=== PATIENT | female | born 1945 | race Caucasian/White ===

== ENCOUNTER 2016-11-01 01:15 | Emergency (ER) | payer MEDICARE, OTHER ==
[~2016-11-01] VITALS: Ht 167.6 cm; Wt 77.1 kg
[~2016-11-01 01:15] MED LIST: AMLO10TA4 PO; CARB200T39; CHLO25TA13; CHOL4PAC2 PO; CLON1TAB4 PO; DESV100T PO; GUAI100S23; HYDR-3652 PO; LAMO25TA4 PO; LISI-603 PO; METO25TA6 PO; NAPR500T3; OMEP20CA10 PO; TIOT18CA3 IH; TRAZ-147 PO
--- NOTE | 2016-11-01 01:20 | NUR ---
71 YO FEMALE BB RA, PT IS ALERT X 3, STATES SHE CALLED 911 BECAUSE THEY WERE NOT GIVEING HER HER MEDICATION. NAD NTOED, SKIN WARM AND DRY, RR EVEN AND UNLABORED. WILL CONTINUE TO MONITOR
[2016-11-01 02:16] LABS: BASOPHILS % (AUTO) 0.2 % (0.0-2.0); EOSINOPHILS % (AUTO) 0.2 % (0.0-6.0); HEMATOCRIT 38 % (33-45); HEMOGLOBIN 12.5 g/dL (11.5-14.8); LYMPHOCYTES # (AUTO) 1.7 /CMM (0.8-4.8); LYMPHOCYTES % (AUTO) 42.1 % (20.0-44.0); MEAN CORPUSCULAR HEMOGLOBIN 31 PG (26.0-33.0); MEAN CORPUSCULAR HGB CONC 33 g/dl (31.0-36.0); MEAN CORPUSCULAR VOLUME 93 fL (82-100); MONOCYTES # (AUTO) 0.5 /CMM (0.1-1.30); MONOCYTES % (AUTO) 12.3 % (2.0-12.0); NEUTROPHILS # (AUTO) 1.8 /CMM (1.8-8.9); NEUTROPHILS % (AUTO) 45.2 % (43.0-81.0); PLATELET COUNT (AUTO) 184 /CMM (150-450); RDW COEFFICIENT OF VARIATION 14.3 (11.5-15.0); RED BLOOD CELL COUNT(AUTO) 4.04 MIL/uL (4.0-5.2); WHITE BLOOD COUNT (AUTO) 4.1 K/uL (4.3-11.0)
[2016-11-01 02:42] LABS: ACETAMINOPHEN 0 ug/ml (10-30); ALANINE AMINOTRANSFERASE 18 U/L (12-78); ALBUMIN 3.7 g/dL (3.4-5.0); ALCOHOL, BLOOD < 3 mg/dL (0-0); ALKALINE PHOSPHATASE 64 U/L (46-116); ASPARTATE AMINOTRANSFERASE 16 U/L (15-37); BILIRUBIN,DIRECT 0.1 mg/dL (0.0-0.2); BILIRUBIN,TOTAL 0.5 mg/dL (0.2-1.0); CALCIUM, SERUM 8.9 mg/dL (8.5-10.1); CARBON DIOXIDE 31 mmol/L (21-32); CHLORIDE 102 mmol/L (98-107); CREATININE 0.7 mg/dL (0.6-1.3); GLUCOSE 100 mg/dL (74-106); POTASSIUM 3.8 mmol/L (3.5-5.1); SALICYLATE 4.9 mg/dL (2.8-20.0); SODIUM SERUM 140 mmol/L (136-145); TOTAL PROTEIN, SERUM 7.6 g/dL (6.4-8.2); UREA NITROGEN, BLOOD 18 mg/dL (7-18)
--- NOTE | 2016-11-01 03:10 | NUR ---
ART CALLED FOR EVAL
[2016-11-01 04:42] VITALS: BP 138/76
--- NOTE | 2016-11-01 04:42 | NUR ---
PT SENT HOME VIA [facility]
== END 2016-11-01 04:46 | disposition home or self-care (01) ==
LOC: ER 01:18
DX: R51 Headache (principal); F32.9 Major depressive disorder, single episode, unspecified; F41.9 Anxiety disorder, unspecified; I10 Essential (primary) hypertension; J44.9 Chronic obstructive pulmonary disease, unspecified; Z86.73 Personal history of transient ischemic attack (TIA), and cerebral infarction without residual deficits; Z88.0 Allergy status to penicillin; F17.210 Nicotine dependence, cigarettes, uncomplicated
CPT/HCPCS: 36415; 80048-TC; 80076-TC; 85025-TC; A4606; G0480; G6039-TC; Z7610

== ENCOUNTER 2016-12-04 19:48 | Inpatient (IN) | payer MEDICARE, OTHER ==
[~2016-12-04] VITALS: Ht 167.6 cm; Wt 68.5 kg
[~2016-12-04 19:48] MED LIST changes: -CHLO25TA13; +CHLO25TA13 PO
[2016-12-04 20:16] LABS: BASOPHILS % (AUTO) 0.8 % (0.0-2.0); HEMATOCRIT 28 % (33-45); HEMOGLOBIN 9.5 g/dL (11.5-14.8); LYMPHOCYTES % (AUTO) 32.7 % (20.0-44.0); MEAN CORPUSCULAR HEMOGLOBIN 32 PG (26.0-33.0); MEAN CORPUSCULAR HGB CONC 34 g/dl (31.0-36.0); MEAN CORPUSCULAR VOLUME 94 fL (82-100); MONOCYTES # (AUTO) 0.4 /CMM (0.1-1.30); MONOCYTES % (AUTO) 12.1 % (2.0-12.0); NEUTROPHILS # (AUTO) 1.7 /CMM (1.8-8.9); NEUTROPHILS % (AUTO) 54.4 % (43.0-81.0); PLATELET COUNT (AUTO) 156 /CMM (150-450); RDW COEFFICIENT OF VARIATION 14.6 (11.5-15.0); RED BLOOD CELL COUNT(AUTO) 2.98 MIL/uL (4.0-5.2); WHITE BLOOD COUNT (AUTO) 3.1 K/uL (4.3-11.0)
[2016-12-04 20:27] LABS: CALCIUM, SERUM 8.5 mg/dL (8.5-10.1); CARBON DIOXIDE 28 mmol/L (21-32); CHLORIDE 105 mmol/L (98-107); CREATININE 0.8 mg/dL (0.6-1.3); GLUCOSE 139 mg/dL (74-106); POTASSIUM 3.7 mmol/L (3.5-5.1); SODIUM SERUM 139 mmol/L (136-145); UREA NITROGEN, BLOOD 20 mg/dL (7-18)
[2016-12-04 20:31] LABS: INR 1.05 (0.87-1.13); PROTHROMBIN TIME 10.9 SECS (9.5-12.7)
[2016-12-04] MEDS ORDERED: IV NS 0.9% 1,000 ML ONE (21:00)
[2016-12-04] MEDS ORDERED: CEFTRIAXONE 1GM BAG (ER ONLY) 50 ML IV ONE ×2 (21:00)
[2016-12-04] MEDS ORDERED: IV SET PRIMARY 1 EA INFUS.SET MC ONE (21:00)
[2016-12-04] MEDS ORDERED: VANCOMYCIN 1 GM in IV D5W 250 ML IV ONE (21:00)
[2016-12-04] MEDS ORDERED: IV NS 0.9% 1,000 ML BAG IV ONE (21:00)
[2016-12-04] MEDS ORDERED: IV SET PRIMARY PUMP SET 1 EA INFUS.SET MC ONE ×2 (21:01→22:47)
[2016-12-04] MEDS ORDERED: VANCOMYCIN 1 GM VIAL ONE (21:01)
[2016-12-04] MEDS ORDERED: PANT40TA4 PO (22:06)
[2016-12-04] MEDS ORDERED: DOXE10CA2 PO (22:06)
[2016-12-04] MEDS ORDERED: DIVA500T7 PO (22:06)
[2016-12-04] MEDS ORDERED: ALBU18HF2 INH (22:06)
[2016-12-04] MEDS ORDERED: DONE10TA44 PO (22:06)
[2016-12-04] MEDS ORDERED: CEPH500C2 PO (22:06)
[2016-12-04] MEDS ORDERED: SECONDARY IV SET 1 EA INFUS.SET MC ONE (22:47)
[2016-12-04] MEDS ORDERED: ACETAMINOPHEN 325 MG TABLET PO PRN (23:00)
[2016-12-04] MEDS ORDERED: LORAZEPAM INJ 2 MG/ML VIAL IV PRN (23:00)
[2016-12-04] MEDS ORDERED: MORPHINE SULFATE INJ 2 MG/ML DISP.SYRIN ONE (23:02)
[2016-12-04] MEDS ORDERED: ENOXAPARIN SODIUM 40 MG/0.4 ML DISP.SYRIN SQ ONE (23:02)
[2016-12-04] MEDS: IV NS 0.9% 1,000 ML IV PRN (23:15)
[2016-12-04] MEDS: MORPHINE SULFATE INJ 2 MG/ML DISP.SYRIN IV PRN (23:15)
[2016-12-04] MEDS: ENOXAPARIN SODIUM 40 MG/0.4 ML DISP.SYRIN SQ SCH (23:17)
[2016-12-05] MEDS ORDERED: MORPHINE SULFATE INJ 2 MG/ML DISP.SYRIN ONE (04:28)
[2016-12-05] MEDS: MORPHINE SULFATE INJ 2 MG/ML DISP.SYRIN IV PRN (04:38)
[2016-12-05 06:35] LABS: BASOPHILS % (AUTO) 0.8 % (0.0-2.0); EOSINOPHILS % (AUTO) 0.1 % (0.0-6.0); HEMATOCRIT 29 % (33-45); HEMOGLOBIN 9.9 g/dL (11.5-14.8); LYMPHOCYTES # (AUTO) 0.9 /CMM (0.8-4.8); LYMPHOCYTES % (AUTO) 44.1 % (20.0-44.0); MEAN CORPUSCULAR HEMOGLOBIN 32 PG (26.0-33.0); MEAN CORPUSCULAR HGB CONC 34 g/dl (31.0-36.0); MEAN CORPUSCULAR VOLUME 94 fL (82-100); MONOCYTES # (AUTO) 0.3 /CMM (0.1-1.30); MONOCYTES % (AUTO) 15.6 % (2.0-12.0); NEUTROPHILS # (AUTO) 0.8 /CMM (1.8-8.9); NEUTROPHILS % (AUTO) 39.4 % (43.0-81.0); PLATELET COUNT (AUTO) 123 /CMM (150-450); RDW COEFFICIENT OF VARIATION 15.3 (11.5-15.0); RED BLOOD CELL COUNT(AUTO) 3.08 MIL/uL (4.0-5.2)
[2016-12-05 07:07] LABS: CALCIUM, SERUM 7.8 mg/dL (8.5-10.1); CARBON DIOXIDE 27 mmol/L (21-32); CHLORIDE 106 mmol/L (98-107); CREATININE 0.4 mg/dL (0.6-1.3); GLUCOSE 91 mg/dL (74-106); POTASSIUM 3.5 mmol/L (3.5-5.1); SODIUM SERUM 141 mmol/L (136-145); UREA NITROGEN, BLOOD 12 mg/dL (7-18)
[2016-12-05] MEDS ORDERED: IBUP-1481 PO (07:30)
[2016-12-05] MEDS ORDERED: DOXE25CA3 PO (07:30)
[2016-12-05] MEDS ORDERED: PANTOPRAZOLE 40 MG TABLET.DR PO SCH (07:30)
[2016-12-05] MEDS ORDERED: DONE5TAB34 PO (07:30)
[2016-12-05 08:00] VITALS: BP 124/67
[2016-12-05 08:40] LABS: LYMPHOCYTES % (MANUAL) 57 % (16-48); MONOCYTES % (MANUAL) 12 % (0-11.0); NEUTROPHILS % (MANUAL) 31 (42-76)
[2016-12-05] MEDS ORDERED: IV SET PRIMARY PUMP SET 1 EA INFUS.SET MC ONE (09:19)
[2016-12-05] MEDS ORDERED: SECONDARY IV SET 1 EA INFUS.SET MC ONE ×2 (09:20→22:06)
[2016-12-05] MEDS: VANCOMYCIN HCL 0.75 GM in IV D5W 250 ML IV SCH ×2 (09:28→21:50)
[2016-12-05] MEDS ORDERED: FEE PK DOSING 1 MIN EA MC ONE (11:29)
[2016-12-05] MEDS: DIVALPROEX SODIUM 500 MG TABLET.DR PO SCH ×2 (12:31→16:42)
[2016-12-05] MEDS: chlorproMAZINE HCL 25 MG TABLET PO SCH ×2 (12:32→16:43)
[2016-12-05] MEDS: HYDROCODONE/APAP 5/325MG 1 EACH TABLET PO SCH ×2 (12:32→21:55)
[2016-12-05] MEDS: AMLODIPINE BESYLATE 10 MG TABLET PO SCH (12:32)
[2016-12-05] MEDS: LISINOPRIL (20MG) 20 MG TABLET PO SCH (12:33)
[2016-12-05] MEDS: IBUPROFEN 400 MG TABLET PO SCH ×2 (13:00→16:43)
[2016-12-05] MEDS ORDERED: ALBUTEROL FS 2.5 MG/3 ML VIAL.NEB NEB PRN (13:30)
[2016-12-05 16:00] VITALS: BP 127/76
[2016-12-05 20:00] VITALS: BP 114/61
[2016-12-05] MEDS: CEFTRIAXONE 1 G in IV D5W 50 ML IV SCH (21:50)
[2016-12-05] MEDS: DONEPEZIL 5 MG TABLET PO SCH (21:54)
[2016-12-05] MEDS: DOXEPIN HCL (25 MG) 25 MG CAPSULE PO SCH (22:15)
[2016-12-05] MEDS: ENOXAPARIN SODIUM 40 MG/0.4 ML DISP.SYRIN SQ SCH (23:00)
[2016-12-06] MEDS: IV NS 0.9% 1,000 ML IV PRN ×2 (05:30→16:43)
[2016-12-06 06:41] LABS: CALCIUM, SERUM 8.5 mg/dL (8.5-10.1); CARBON DIOXIDE 30 mmol/L (21-32); CHLORIDE 104 mmol/L (98-107); CREATININE 0.5 mg/dL (0.6-1.3); GLUCOSE 94 mg/dL (74-106); MAGNESIUM 1.7 mg/dL (1.8-2.4); POTASSIUM 3.4 mmol/L (3.5-5.1); SODIUM SERUM 140 mmol/L (136-145); UREA NITROGEN, BLOOD 10 mg/dL (7-18)
[2016-12-06 06:57] LABS: WHITE BLOOD COUNT (AUTO) 2.1 K/uL (4.3-11.0)
[2016-12-06 06:58] LABS: BASOPHILS % (AUTO) 0.6 % (0.0-2.0); EOSINOPHILS % (AUTO) 0.4 % (0.0-6.0); HEMATOCRIT 31 % (33-45); HEMOGLOBIN 10.6 g/dL (11.5-14.8); LYMPHOCYTES % (AUTO) 47.7 % (20.0-44.0); MEAN CORPUSCULAR HEMOGLOBIN 32 PG (26.0-33.0); MEAN CORPUSCULAR HGB CONC 35 g/dl (31.0-36.0); MEAN CORPUSCULAR VOLUME 94 fL (82-100); MONOCYTES % (AUTO) 15.5 % (2.0-12.0); NEUTROPHILS # (AUTO) 0.7 /CMM (1.8-8.9); NEUTROPHILS % (AUTO) 35.8 % (43.0-81.0); PLATELET COUNT (AUTO) 130 /CMM (150-450); RDW COEFFICIENT OF VARIATION 14.9 (11.5-15.0); RED BLOOD CELL COUNT(AUTO) 3.28 MIL/uL (4.0-5.2)
[2016-12-06 06:59] LABS: MONOCYTES # (AUTO) 0.3 /CMM (0.1-1.30)
[2016-12-06 08:00] VITALS: BP 138/75
[2016-12-06] MEDS: HYDROCODONE/APAP 5/325MG 1 EACH TABLET PO SCH ×2 (08:15→16:44)
[2016-12-06] MEDS: IBUPROFEN 400 MG TABLET PO SCH ×3 (08:15→16:44)
[2016-12-06] MEDS: DIVALPROEX SODIUM 500 MG TABLET.DR PO SCH ×2 (08:17→16:44)
[2016-12-06] MEDS: PANTOPRAZOLE 40 MG TABLET.DR PO SCH (08:17)
[2016-12-06] MEDS: VANCOMYCIN HCL 0.75 GM in IV D5W 250 ML IV SCH ×2 (08:17→21:14)
[2016-12-06] MEDS: LISINOPRIL (20MG) 20 MG TABLET PO SCH (08:17)
[2016-12-06] MEDS: chlorproMAZINE HCL 25 MG TABLET PO SCH ×2 (08:17→16:45)
[2016-12-06] MEDS: AMLODIPINE BESYLATE 10 MG TABLET PO SCH (08:21)
[2016-12-06] MEDS: MORPHINE SULFATE INJ 2 MG/ML DISP.SYRIN IV PRN (09:15)
[2016-12-06 09:21] LABS: LYMPHOCYTES % (MANUAL) 45 % (16-48); MONOCYTES % (MANUAL) 20 % (0-11.0); NEUTROPHILS % (MANUAL) 35 (42-76)
[2016-12-06] MEDS ORDERED: MAGNESIUM OXIDE 400 MG TABLET PO SCH (11:00)
[2016-12-06] MEDS ORDERED: POTASSIUM CHLORIDE 20 MEQ TAB.PRT.SR PO SCH (11:00)
[2016-12-06] MEDS ORDERED: ONDANSETRON HCL/PF 4 MG/2 ML VIAL IV PRN (14:30)
[2016-12-06 16:00] VITALS: BP 100/54
[2016-12-06] MEDS: LACTOBACILLUS RHAMNOSUS GG 1 EACH CAP.SPRINK PO SCH (16:44)
[2016-12-06 20:00] VITALS: BP 122/70
[2016-12-06 20:01] VITALS: BP 122/70
[2016-12-06] MEDS: CEFTRIAXONE 1 G in IV D5W 50 ML IV SCH (21:14)
[2016-12-06] MEDS: DOXEPIN HCL (25 MG) 25 MG CAPSULE PO SCH (21:59)
[2016-12-06] MEDS: DONEPEZIL 5 MG TABLET PO SCH (22:00)
[2016-12-07] MEDS: ENOXAPARIN SODIUM 40 MG/0.4 ML DISP.SYRIN SQ SCH ×2 (00:57→22:01)
[2016-12-07 07:14] LABS: BASOPHILS % (AUTO) 0.6 % (0.0-2.0); EOSINOPHILS % (AUTO) 0.1 % (0.0-6.0); HEMATOCRIT 30 % (33-45); HEMOGLOBIN 10.4 g/dL (11.5-14.8); MEAN CORPUSCULAR HEMOGLOBIN 33 PG (26.0-33.0); MEAN CORPUSCULAR HGB CONC 35 g/dl (31.0-36.0); MEAN CORPUSCULAR VOLUME 93 fL (82-100); MONOCYTES # (AUTO) 0.4 /CMM (0.1-1.30); MONOCYTES % (AUTO) 16.9 % (2.0-12.0); NEUTROPHILS # (AUTO) 0.8 /CMM (1.8-8.9); NEUTROPHILS % (AUTO) 36.4 % (43.0-81.0); PLATELET COUNT (AUTO) 132 /CMM (150-450); RDW COEFFICIENT OF VARIATION 14.9 (11.5-15.0); RED BLOOD CELL COUNT(AUTO) 3.18 MIL/uL (4.0-5.2); WHITE BLOOD COUNT (AUTO) 2.2 K/uL (4.3-11.0)
[2016-12-07 07:39] LABS: CALCIUM, SERUM 8.2 mg/dL (8.5-10.1); CARBON DIOXIDE 30 mmol/L (21-32); CHLORIDE 105 mmol/L (98-107); CREATININE 0.5 mg/dL (0.6-1.3); GLUCOSE 86 mg/dL (74-106); MAGNESIUM 1.8 mg/dL (1.8-2.4); POTASSIUM 3.8 mmol/L (3.5-5.1); SODIUM SERUM 140 mmol/L (136-145); UREA NITROGEN, BLOOD 14 mg/dL (7-18)
[2016-12-07 08:00] VITALS: BP 135/73
[2016-12-07] MEDS: VANCOMYCIN HCL 0.75 GM in IV D5W 250 ML IV SCH (08:21)
[2016-12-07] MEDS: IBUPROFEN 400 MG TABLET PO SCH ×3 (08:21→16:45)
[2016-12-07] MEDS: LACTOBACILLUS RHAMNOSUS GG 1 EACH CAP.SPRINK PO SCH ×2 (08:21→16:45)
[2016-12-07] MEDS: DIVALPROEX SODIUM 500 MG TABLET.DR PO SCH ×2 (08:21→16:44)
[2016-12-07] MEDS: chlorproMAZINE HCL 25 MG TABLET PO SCH ×2 (08:21→16:45)
[2016-12-07] MEDS: HYDROCODONE/APAP 5/325MG 1 EACH TABLET PO SCH ×2 (08:22→16:45)
[2016-12-07] MEDS: PANTOPRAZOLE 40 MG TABLET.DR PO SCH (08:22)
[2016-12-07] MEDS: LISINOPRIL (20MG) 20 MG TABLET PO SCH (08:23)
[2016-12-07] MEDS: AMLODIPINE BESYLATE 10 MG TABLET PO SCH (08:28)
[2016-12-07] MEDS ORDERED: POTASSIUM CHLORIDE 20 MEQ TAB.PRT.SR PO ONE (08:30)
[2016-12-07 10:17] LABS: LYMPHOCYTES % (MANUAL) 26 % (16-48); MONOCYTES % (MANUAL) 21 % (0-11.0); NEUTROPHILS % (MANUAL) 53 (42-76)
[2016-12-07 16:00] VITALS: BP 116/66
[2016-12-07] MEDS: VANCOMYCIN 1 GM in IV D5W 250 ML IV SCH (17:00)
[2016-12-07 20:00] VITALS: BP 111/63
[2016-12-07 20:17] VITALS: BP 111/63
[2016-12-07] MEDS: CEFTRIAXONE 1 G in IV D5W 50 ML IV SCH (20:53)
[2016-12-07] MEDS: DOXEPIN HCL (25 MG) 25 MG CAPSULE PO SCH (21:48)
[2016-12-07] MEDS: DONEPEZIL 5 MG TABLET PO SCH (21:48)
[2016-12-08] MEDS: MORPHINE SULFATE INJ 2 MG/ML DISP.SYRIN IV PRN (02:51)
[2016-12-08 02:58] VITALS: BP 121/64
[2016-12-08] MEDS: VANCOMYCIN 1 GM in IV D5W 250 ML IV SCH ×2 (05:02→17:37)
[2016-12-08 07:46] LABS: CALCIUM, SERUM 8.6 mg/dL (8.5-10.1); CARBON DIOXIDE 29 mmol/L (21-32); CHLORIDE 105 mmol/L (98-107); CREATININE 0.6 mg/dL (0.6-1.3); GLUCOSE 98 mg/dL (74-106); POTASSIUM 3.9 mmol/L (3.5-5.1); SODIUM SERUM 142 mmol/L (136-145); UREA NITROGEN, BLOOD 19 mg/dL (7-18)
[2016-12-08 08:00] VITALS: BP 136/73
[2016-12-08] MEDS: LACTOBACILLUS RHAMNOSUS GG 1 EACH CAP.SPRINK PO SCH ×2 (09:10→17:36)
[2016-12-08] MEDS: PANTOPRAZOLE 40 MG TABLET.DR PO SCH (09:10)
[2016-12-08] MEDS: HYDROCODONE/APAP 5/325MG 1 EACH TABLET PO SCH ×2 (09:10→17:36)
[2016-12-08] MEDS: chlorproMAZINE HCL 25 MG TABLET PO SCH ×2 (09:10→17:36)
[2016-12-08] MEDS: LISINOPRIL (20MG) 20 MG TABLET PO SCH (09:10)
[2016-12-08] MEDS: DIVALPROEX SODIUM 500 MG TABLET.DR PO SCH ×2 (09:11→17:36)
[2016-12-08] MEDS: AMLODIPINE BESYLATE 10 MG TABLET PO SCH (09:11)
[2016-12-08] MEDS: IBUPROFEN 400 MG TABLET PO SCH ×3 (09:11→17:36)
[2016-12-08 16:00] VITALS: BP 126/70
[2016-12-08 20:00] VITALS: BP 128/72
[2016-12-08] MEDS: CEFTRIAXONE 1 G in IV D5W 50 ML IV SCH (20:24)
[2016-12-08] MEDS: DOXEPIN HCL (25 MG) 25 MG CAPSULE PO SCH (21:57)
[2016-12-08] MEDS: DONEPEZIL 5 MG TABLET PO SCH (21:57)
[2016-12-08] MEDS: ENOXAPARIN SODIUM 40 MG/0.4 ML DISP.SYRIN SQ SCH (22:13)
[2016-12-09] MEDS: PANTOPRAZOLE 40 MG TABLET.DR PO SCH (06:36)
[2016-12-09 08:00] VITALS: BP 139/69
[2016-12-09] MEDS: VANCOMYCIN 1 GM in IV D5W 250 ML IV SCH (09:13)
[2016-12-09] MEDS: chlorproMAZINE HCL 25 MG TABLET PO SCH ×2 (09:14→16:20)
[2016-12-09] MEDS: LACTOBACILLUS RHAMNOSUS GG 1 EACH CAP.SPRINK PO SCH ×2 (09:14→16:19)
[2016-12-09] MEDS: IBUPROFEN 400 MG TABLET PO SCH ×3 (09:14→16:19)
[2016-12-09] MEDS: HYDROCODONE/APAP 5/325MG 1 EACH TABLET PO SCH ×2 (09:15→16:20)
[2016-12-09] MEDS: DIVALPROEX SODIUM 500 MG TABLET.DR PO SCH ×2 (09:15→16:19)
[2016-12-09] MEDS: LISINOPRIL (20MG) 20 MG TABLET PO SCH (09:16)
[2016-12-09] MEDS: AMLODIPINE BESYLATE 10 MG TABLET PO SCH (09:16)
[2016-12-09 15:37] LABS: CALCIUM, SERUM 8.7 mg/dL (8.5-10.1); CARBON DIOXIDE 25 mmol/L (21-32); CHLORIDE 104 mmol/L (98-107); CREATININE 0.7 mg/dL (0.6-1.3); GLUCOSE 93 mg/dL (74-106); POTASSIUM 3.9 mmol/L (3.5-5.1); SODIUM SERUM 139 mmol/L (136-145); UREA NITROGEN, BLOOD 20 mg/dL (7-18)
[2016-12-09 16:00] VITALS: BP 115/67
== END 2016-12-09 16:45 | DRG 603 ==
LOC: ER 19:54 → MED 21:56
PROVIDERS: ADMIT Legal Medicine; ATTEND Legal Medicine
PROC: 05H533Z Insertion of Infusion Device into Right Subclavian Vein, Percutaneous Approach (ICD-10-PCS; principal; 2016-12-04)
DX: L03.114 Cellulitis of left upper limb (principal); J44.9 Chronic obstructive pulmonary disease, unspecified; G89.4 Chronic pain syndrome; F31.9 Bipolar disorder, unspecified; E78.5 Hyperlipidemia, unspecified; I10 Essential (primary) hypertension; F03.90 Unspecified dementia, unspecified severity, without behavioral disturbance, psychotic disturbance, mood disturbance, and anxiety; M19.90 Unspecified osteoarthritis, unspecified site; Z88.0 Allergy status to penicillin; Z86.73 Personal history of transient ischemic attack (TIA), and cerebral infarction without residual deficits
CPT/HCPCS: 36415; 36569; 70450-TC; 72125-TC; 73080-TC; 80048-TC; 80202-TC; 83605-TC; 83735-TC; 85025-TC; 85652-TC; 85730-TC; 87040-TC; 87070-TC; 87081-TC; 94799-TC; A4606; A6253; A6402; A6403; J0696; J1650; J2060; J2270; J3370; J7030; J7060; Q0161; Z7610

== ENCOUNTER 2017-03-13 11:06 | Inpatient (IN) | payer MEDICARE, OTHER ==
[~2017-03-13] VITALS: Ht 167.6 cm; Wt 61.2 kg
[~2017-03-13 11:06] MED LIST changes: +ALBU18HF2 INH; -CARB200T39; +CEPH500C2 PO; -CHOL4PAC2 PO; -CLON1TAB4 PO; -DESV100T PO; +DIVA500T7 PO; +DONE5TAB34 PO; +DOXE25CA3 PO; -GUAI100S23; +IBUP-1481 PO; -LAMO25TA4 PO; -METO25TA6 PO; -NAPR500T3; -OMEP20CA10 PO; +PANT40TA4 PO; -TIOT18CA3 IH; -TRAZ-147 PO
--- NOTE | 2017-03-13 11:15 | NUR ---
PT LIZZIE FROM [facility], C/O DIFFUSE ABDOMINAL PAIN W/ N/V. PT STATES FEELING SICK FOR AT LEAST 2 WEEKS NOW. PT IS AAOX3. GOWNED AND AND PLACED ON MONITOR. HYPERTENSIVE OTHERWISE STABLE VITALS. AWAITING MD ADAMS.
--- NOTE | 2017-03-13 11:16 | NUR ---
COFFIN MAKER AT BEDSIDE FOR BLOOD DRAW.
[2017-03-13 11:27] LABS: BASOPHILS % (AUTO) 0.3 % (0.0-2.0); HEMATOCRIT 41 % (33-45); HEMOGLOBIN 13.8 g/dL (11.5-14.8); LYMPHOCYTES # (AUTO) 0.7 /CMM (0.8-4.8); LYMPHOCYTES % (AUTO) 16.7 % (20.0-44.0); MEAN CORPUSCULAR HEMOGLOBIN 32 PG (26.0-33.0); MEAN CORPUSCULAR HGB CONC 34 g/dl (31.0-36.0); MEAN CORPUSCULAR VOLUME 95 fL (82-100); MONOCYTES # (AUTO) 0.1 /CMM (0.1-1.30); MONOCYTES % (AUTO) 2.9 % (2.0-12.0); NEUTROPHILS # (AUTO) 3.4 /CMM (1.8-8.9); NEUTROPHILS % (AUTO) 80.1 % (43.0-81.0); PLATELET COUNT (AUTO) 151 /CMM (150-450); RED BLOOD CELL COUNT(AUTO) 4.26 MIL/uL (4.0-5.2); WHITE BLOOD COUNT (AUTO) 4.3 K/uL (4.3-11.0)
[2017-03-13] MEDS ORDERED: IV NS 0.9% 1,000 ML BAG IV ONE (11:30)
[2017-03-13] MEDS ORDERED: ONDANSETRON HCL/PF - ER 4 MG/2 ML VIAL IV ONE (11:30)
[2017-03-13] MEDS ORDERED: SULF1TAB48 PO (11:34)
[2017-03-13] MEDS ORDERED: ACID1TAB12 PO (11:34)
[2017-03-13] MEDS ORDERED: MUPI22OI7 MC (11:34)
[2017-03-13] MEDS ORDERED: DULO30CA2 PO (11:34)
[2017-03-13] MEDS ORDERED: ONDANSETRON HCL/PF 4 MG/2 ML VIAL ONE (11:34)
[2017-03-13 11:36] LABS: CALCIUM, SERUM 9.4 mg/dL (8.5-10.1); CARBON DIOXIDE 27 mmol/L (21-32); CHLORIDE 101 mmol/L (98-107); CREATININE 0.6 mg/dL (0.6-1.3); GLUCOSE 176 mg/dL (74-106); POTASSIUM 3.4 mmol/L (3.5-5.1); SODIUM SERUM 138 mmol/L (136-145); UREA NITROGEN, BLOOD 10 mg/dL (7-18)
--- NOTE | 2017-03-13 11:37 | NUR ---
DR ORNELAS AT BEDSIDE FOR EVAL.
[2017-03-13 11:42] LABS: ALANINE AMINOTRANSFERASE 14 U/L (12-78); ALBUMIN 4.1 g/dL (3.4-5.0); ALKALINE PHOSPHATASE 49 U/L (46-116); ASPARTATE AMINOTRANSFERASE 14 U/L (15-37); BILIRUBIN,DIRECT 0.1 mg/dL (0.0-0.2); BILIRUBIN,TOTAL 0.5 mg/dL (0.2-1.0); LIPASE 93 U/L (73-393); TOTAL PROTEIN, SERUM 8.1 g/dL (6.4-8.2)
[2017-03-13] MEDS ORDERED: MORPHINE SULFATE INJ 4 MG/ML DISP.SYRIN ONE (11:47)
[2017-03-13] MEDS ORDERED: MORPHINE SULFATE INJ 2 MG/ML DISP.SYRIN IV ONE (12:00)
[2017-03-13] MEDS ORDERED: ACETAMINOPHEN 325 MG TABLET PO PRN (12:30)
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
[2017-03-13] MEDS ORDERED: IOHEXOL-300 100 ML VIAL IV ONE (14:43)
[2017-03-13] MEDS ORDERED: IV NS 0.9% 250 ML IV ONE (14:43)
[2017-03-13 15:15] VITALS: BP 177/91
--- NOTE | 2017-03-13 15:15 | NUR ---
OFFICE SERVICES ASSISTANT NOTES ADMITTED THIS PATIENT, DX INTRACTABLE VOMITING, ABDOMINAL PAIN BY DR. CLAUDIA POON, AOX 3, ON 2L O2, NOT IN ANY DISTRESS, C/O ABDOMINAL PAIN, 3/10, TOLERABLE, RECEIVED PAIN MEDS AT ER, TELEMETRY READS SR 65, DENIES AMBROCIO DISCOMFORT, RFA G20 WITH NS AT 75 ML/HR, SITE CLEAR, CLEAR LIQUID DIET, BED REST FOR NOW. SKIN INTACT, URINT ORIENTATION DONE AND USE OF CALL LIGHT, BED LOW LOCKED, CALL LIGHT WITHIN REACH, WILL CONT TO MONITOR.
--- NOTE | 2017-03-13 15:24 | NUR ---
REPORT GIVEN TO ROSHAN. PT TRANSFERED TO FLOOR. UPGRADED TO TELE. STABLE CONDITION.
--- NOTE | 2017-03-13 15:30 | NUR ---
WHOLESALE PARTS SALESPERSON NOTES DR. TAYLOR NOTIFIED BP 177/91. ORDERED CLONOPIN 0.1MG Q 7 DAYS, HOLD FOR SBP <100.
[2017-03-13] MEDS ORDERED: CLONIDINE HCL 0.1MG/24H PTWK 1 EA PATCH TD SCH (16:00)
[2017-03-13] MEDS ORDERED: POTASSIUM CHLORIDE 20 MEQ TAB.PRT.SR PO ONE (16:00)
--- NOTE | 2017-03-13 16:15 | NUR ---
BIOINFORMATICIST NOTES BP RECHECKED 170/83 HR 63.
[2017-03-13] MEDS: IV NS 0.9% 1,000 ML IV PRN (16:19)
[2017-03-13] MEDS: DIVALPROEX SODIUM 500 MG TABLET.DR PO SCH (16:19)
[2017-03-13 18:00] VITALS: BP 170/83
--- NOTE | 2017-03-13 18:28 | NUR ---
ADVANCED MANAGER NOTES PATIENT RESTING COMFORTABLY. ON O2 2L NC, NOT IN ANY DISTRESS, NO SIGNS OF PAIN. IVF RUNNING, SITE CLEAR, TELEMETRY READS SR HR 63. ALL NEEDS MET. NO OTHER SIGNIFICANT CHANGE IN CONDITION. WILL ENDORSE TO NEXT SHIFT FOR JES.
[2017-03-13 20:00] VITALS: BP 171/72
--- NOTE | 2017-03-13 20:10 | NUR ---
RN INITIAL NOTES: RECEIVED REPORT FROM KAVON ZAMARRIPA, PT IN BED, AWAKE, A/O X2 ON 2L VIA NC RESPIRATION EVEN AND UNLABORED, PT IS UPSET BECAUSE SHE STATED SHE'S BEEN ASKING FOR SODA SINCE LUNCH TIME AND THE NURSE DIDNT BRING ANYTHING, INFORMED PT WE DONT HAVE KITCHEN AT NIGHT AND I COULD ONLY OFFER JUICE AND WATER, AND ASK IF PT STILL HAVE EPISODE OF N/V, SHE STATED YES, THEN I EDUCATE HER THAT D=SODA WOULD NOT BE A GOOD OPTION TO DRINK SINCE IT WILL MAKE HER STOMACH MORE ACIDIC AND UPSET. PT AGREE. IV ACCESS IS PATENT AND FLUSHING WELL, INFUSING WITH NS AT 75ML/HR, PT ON SINUS RHYTHM HR 85, SAFETY PRECAUTIONS FOR FALL INITIATED CALL LIGHT IN REACH, WILL CONTINUE TO MONITOR
--- NOTE | 2017-03-13 20:30 | NUR ---
RN NOTES: NOTED PT'S BP ELEVATED, PT GIVEN CATAPRES PATCH AT 1640, FLUIDS WERE DECREASE TO 40CC/HR IT SEEMS LIKE THE RATE COULD POSSIBLY CAUSING THE BP TO GO UP, WILL RECHECK VS AFTER 30MINS TO 1HR, THEN WILL PLACE THE RATE BACK TO 75ML/HR ONCE VS WAS CHECK.
[2017-03-13 21:00] VITALS: BP 175/77
[2017-03-13] MEDS: FAMOTIDINE/PF INJ 20 MG/2 ML VIAL IV SCH (21:55)
[2017-03-13] MEDS: DONEPEZIL 5 MG TABLET PO SCH (21:55)
--- NOTE | 2017-03-13 22:50 | NUR ---
RN NOTES: REPORT GIVEN TO AMITA RN, ALSO INFORMED ABOUT PT'S BP SO FAR IT'S STILL 170'S, PT DENIES ANY HEAD ACHE DIZZINESS OR PAIN, PT CURRENTLY SLEEPING. ENDORSED FOR CONTINUITY OF CARE
[2017-03-14] VITALS (8 sets, daily range): BP systolic 106–187; BP diastolic 50–97
[2017-03-14] MEDS: ONDANSETRON HCL/PF 4 MG/2 ML VIAL IVP PRN ×4 (01:09→23:55)
--- NOTE | 2017-03-14 01:09 | NUR ---
DRY PRESS OPERATOR NOTES C/O NAUSEA/VOMITING,ZOFRAN 4MG IV ADMINISTERED
[2017-03-14] MEDS: HYDROCODONE/APAP 5/325MG 1 EACH TABLET PO PRN (01:15)
--- NOTE | 2017-03-14 01:15 | NUR ---
KEYSMITH NOTES PAIN MANAGEMENT C/O ABDOMINAL PAIN 7/10 ON PAIN SCALE,MEDICATED WITH NORCO 5/325 1TAB PO WITH JELLO PER PATIENT REQUEST
--- NOTE | 2017-03-14 01:30 | NUR ---
MANUFACTURER REPRESENTATIVE NOTES DR AGUAYO MADE AWARE OF PATIENT HIGH SBP,WITH NEW ORDER NOTED AND CARRIED OUT.
[2017-03-14] MEDS ORDERED: hydrALAZINE HCL IV 20 MG VIAL ONE (04:17)
[2017-03-14] MEDS: hydrALAZINE HCL IV 20 MG VIAL IV PRN ×2 (04:22→23:56)
--- NOTE | 2017-03-14 06:54 | NUR ---
SET UP OPERATOR TOOL NOTES LATEST BP 164/87,HR-93.IVF INFUSING AT THIS TIME. NAUSEA SUBSIDED.NO PAIN AT THIS TIME.CALL LIGHT IN REACH,NEEDS ATTENDED.WILL ENDORSE TO DAY NURSE FOR JES.
[2017-03-14 07:09] LABS: BASOPHILS % (AUTO) 0.1 % (0.0-2.0); EOSINOPHILS % (AUTO) 0.1 % (0.0-6.0); HEMATOCRIT 43 % (33-45); HEMOGLOBIN 14.9 g/dL (11.5-14.8); LYMPHOCYTES % (AUTO) 12.8 % (20.0-44.0); MEAN CORPUSCULAR HEMOGLOBIN 32 PG (26.0-33.0); MEAN CORPUSCULAR HGB CONC 34 g/dl (31.0-36.0); MEAN CORPUSCULAR VOLUME 94 fL (82-100); MONOCYTES # (AUTO) 0.2 /CMM (0.1-1.30); MONOCYTES % (AUTO) 2.7 % (2.0-12.0); NEUTROPHILS # (AUTO) 6.6 /CMM (1.8-8.9); NEUTROPHILS % (AUTO) 84.3 % (43.0-81.0); PLATELET COUNT (AUTO) 184 /CMM (150-450); RDW COEFFICIENT OF VARIATION 13.6 (11.5-15.0); RED BLOOD CELL COUNT(AUTO) 4.61 MIL/uL (4.0-5.2); WHITE BLOOD COUNT (AUTO) 7.9 K/uL (4.3-11.0)
[2017-03-14 07:37] LABS: CALCIUM, SERUM 9.3 mg/dL (8.5-10.1); CARBON DIOXIDE 28 mmol/L (21-32); CHLORIDE 97 mmol/L (98-107); CREATININE 0.5 mg/dL (0.6-1.3); GLUCOSE 142 mg/dL (74-106); MAGNESIUM 1.7 mg/dL (1.8-2.4); PHOSPHORUS 3.1 mg/dL (2.5-4.9); SODIUM SERUM 136 mmol/L (136-145); UREA NITROGEN, BLOOD 15 mg/dL (7-18)
[2017-03-14 07:42] LABS: CHOLESTEROL 192 mg/dL (<200); HDL CHOLESTEROL 87 mg/dL (40-60); LDL 95 mg/dL (0-99); THYROID STIMULATING HORMONE 0.697 uIU/mL (0.358-3.74); TRIGLYCERIDES 47 mg/dL (30-150)
--- NOTE | 2017-03-14 08:07 | NUR ---
RN NOTES RECV'D REPORT FROM KYLEIGH RN. PT A&OX4. ARRIVED FROM ER LAST NIGHT FOR N/V. KYLEIGH RN GAVE ZOFRAN. PT HAD HTN SBP 180 NOC HYDRALAZINE GIVEN BY KYLEIGH RN. WILL RECHECK VITALS THIS AM.. 96% O2 SATS 2LNC. HOB ELEVATED. TELE NSR 67. CLEAR LIQ DIET. NS @ 75ML/HR RFA 20G. NO SOB. REGULAR RESPIRATIONS. BED IN LOW LOCKED POSITION. CALL LIGHT IN REACH. WILL CONT TO MONITOR CLOSELY.
[2017-03-14] MEDS: MORPHINE SULFATE INJ 2 MG/ML DISP.SYRIN IV PRN ×3 (08:50→21:29)
[2017-03-14] MEDS ORDERED: PANTOPRAZOLE 40 MG VIAL IV SCH (09:00)
[2017-03-14] MEDS: DULOXETINE HCL 30 MG CAPSULE.DR PO SCH (09:58)
[2017-03-14] MEDS: FAMOTIDINE/PF INJ 20 MG/2 ML VIAL IV SCH ×2 (09:59→21:25)
[2017-03-14] MEDS: AMLODIPINE BESYLATE 10 MG TABLET PO SCH (09:59)
[2017-03-14] MEDS: DIVALPROEX SODIUM 500 MG TABLET.DR PO SCH ×2 (10:00→17:02)
--- NOTE | 2017-03-14 12:00 | NUR ---
RN NOTES PT A&OX4. HOB ELEVATED. NPO. GI AND CARDIO CONSULTS PENDING. PT CONT TO MILD NAUSEA AND SMALL AMT EMESIS X 2 THIS SHIFT. ABD PAIN ALLEVIATED BY MORPHONE IV PUSH. IVF NS @75ML/HR. 2LNC NON LABORED BREATHING. TELE NSR. PROVIDED COLD CLOTH AND APPLIED TO FOREHEAD--EFFECTIVE FOR NAUSEA RELIEF AT THIS TIME. PT HAS HAD TWO URINE SOILED BRIEFS. BED IN LOW LOCKED POSITION. CALL LIGHT IN REACH. WILL CONT TO MONITOR.
[2017-03-14] MEDS: IV NS 0.9% 1,000 ML IV PRN (13:45)
[2017-03-14] MEDS: Magnesium 1GM/D5W 100ML PREMIX 100 ML IV SCH ×2 (14:11→15:49)
[2017-03-14] MEDS: POTASSIUM CHLORIDE 20 MEQ TAB.PRT.SR PO SCH ×5 (14:30→18:10)
--- NOTE | 2017-03-14 17:48 | NUR ---
RN NOTES PT STATES SHE IS FEELING BETTER FOLLOWING ZOFRAN AND MORPHINE INJ. TOLERATES SIPS OF CLEARS. SMALL EPISODES OF EMESIS TODAY. PT CONSENTED FOR EGD TOMORROW. ULTRASOUND OF GALLBLADDER POSITIVE FOR SMALL STONE PER TECH. PT RESTING COMFORTABLY AT PRESENT. NO LABORED BREATHING. TELE NSR. REPLETED MAG AND K+. 20G RH IV PATENT INFUSING NS @ 75ML/HR. 2LNC 94%. BED IN LOW LOCKED POSITION. CALL LIGHT IN REACH. WILL CONT TO MONITOR AND ENDORSE REPORT TO NOC RN.
--- NOTE | 2017-03-14 19:15 | NUR ---
RN NOTES RECEIVED PT RESTING ON BED AOX3 ABLE TO MAKE KNOWN NEEDS. WITH O2 2LPM VIA NC SATING 97% SR HR 70'S ON TELE MONITOR. IV SITE ON RIGHT FOREARM G 20RUNNING WITH NS @ 75 CC/HR INTACT AND PATENT. PATIENT COMPLAINED OF PAIN IN ABDOMEN ENCOURAGED TO REPOSITIONED TOLERATED . ALL NEEDS ATTENDED. BED LOCKED AND SECURED. WILL CONTINUE TO MONITOR.
[2017-03-14] MEDS: DONEPEZIL 5 MG TABLET PO SCH (21:23)
[2017-03-15] VITALS (10 sets, daily range): BP systolic 136–188; BP diastolic 60–98
[2017-03-15] MEDS: MORPHINE SULFATE INJ 2 MG/ML DISP.SYRIN IV PRN ×2 (03:37→17:33)
--- NOTE | 2017-03-15 06:52 | NUR ---
RN NOTES PT STILL COMPLAINING OF PAIN TIME TO TIME. PRN PAIN MEDICINE GIVEN ORDERED DUE TO COMPLAINING OF ABDOMINAL PAIN AT SCALE OF 8/10. EFFECTIVE FOR ABOUT 3 HOURS. AFEBRILE. REMAINED NPO TODAY TFO. PT WILL HAVE EGD TODAY. SKIN CARE PROVIDED. PHOTO TAKEN. KEPT PT CLEAN AND DRY. WILL ENDORSED CONTINUITY OF CARE RO AM NURSE.
--- NOTE | 2017-03-15 07:30 | NUR ---
RN NOTES RECV'D PT RESTING IN BED, ASLEEP AT THIS TIME. EASILY AROUSABLE TO VERBAL AND TACTILE STIMULI. SR ON TELE MONITOR. HOB ELEVATED. NPO AT THIS TIME FOR EGD TODAY AT 1345 PER REPORT. ONGOING NS @ 75ML/HR RFA 20G. NO SOB. REGULAR RESPIRATIONS. BED IN LOW LOCKED POSITION. CALL LIGHT IN REACH. WILL CONT TO MONITOR CLOSELY.
[2017-03-15 07:51] LABS: CALCIUM, SERUM 8.7 mg/dL (8.5-10.1); CARBON DIOXIDE 28 mmol/L (21-32); CHLORIDE 98 mmol/L (98-107); CREATININE 0.4 mg/dL (0.6-1.3); GLUCOSE 135 mg/dL (74-106); MAGNESIUM 2.2 mg/dL (1.8-2.4); PHOSPHORUS 2.8 mg/dL (2.5-4.9); POTASSIUM 3.5 mmol/L (3.5-5.1); SODIUM SERUM 135 mmol/L (136-145); UREA NITROGEN, BLOOD 19 mg/dL (7-18)
[2017-03-15] MEDS: IV NS 0.9% 1,000 ML IV PRN (09:05)
[2017-03-15] MEDS: DULOXETINE HCL 30 MG CAPSULE.DR PO SCH (09:06)
[2017-03-15] MEDS: DIVALPROEX SODIUM 500 MG TABLET.DR PO SCH ×2 (09:06→16:34)
[2017-03-15] MEDS: AMLODIPINE BESYLATE 10 MG TABLET PO SCH (09:06)
[2017-03-15] MEDS: FAMOTIDINE/PF INJ 20 MG/2 ML VIAL IV SCH ×2 (09:06→20:34)
[2017-03-15] MEDS: ASPIRIN EC 81 MG TABLET.DR PO SCH (09:07)
--- NOTE | 2017-03-15 13:45 | NUR ---
RN NOTES PT PICKED UP TO OR FOR EGD
--- NOTE | 2017-03-15 15:45 | NUR ---
RN NOTES PT CAME BACK FROM PROCEDURE, ALL MD ORDERS NOTED AND CARRIED OUT. VS CONTINUOUSLY MONITORED. BP NOTED ELEVATED, WILL ADMINISTER HYDRALAZINE PRN.
[2017-03-15] MEDS: hydrALAZINE HCL IV 20 MG VIAL IV PRN (16:34)
[2017-03-15] MEDS: IV LR 1000 ML 1,000 ML IV PRN ×2 (16:56→19:49)
[2017-03-15] MEDS: ONDANSETRON HCL/PF 4 MG/2 ML VIAL IVP PRN (17:14)
--- NOTE | 2017-03-15 20:00 | NUR ---
RN NOTES - RECEIVED PT RESTING IN BED, ASLEEP AT THIS TIME. EASILY AROUSABLE TO VERBAL AND TACTILE STIMULI. SR ON TELE MONITOR. HOB ELEVATED. PT ON CLEAR LIQUID DIET. PT IN IVF LR @ 75ML/HR RFA 20G. NO SOB. REGULAR RESPIRATIONS. BED IN LOW LOCKED POSITION. CALL LIGHT IN REACH. WILL CONT TO MONITOR CLOSELY.
[2017-03-15] MEDS: HYDROCODONE/APAP 5/325MG 1 EACH TABLET PO PRN (20:34)
[2017-03-15] MEDS ORDERED: HYDROCODONE/APAP 5/325MG 1 EACH TABLET ONE (20:49)
--- NOTE | 2017-03-15 22:00 | NUR ---
PT REQUESTED NORCO FOR PAIN, I CRUSHED IT AND PLACED IT IN APPLESAUCE, THEN PT VOMITED. THEN PT ASKED FOR ANOTHER NORCO, SO I ASKED RIPPLER KATIE HUNTER TO OVERRIDE IT, THEN I WENT TO GIVE IT TO THE PT AND SHE THEN REFUSED IT, SO I RETURNED IT TO THE [facility]
[2017-03-15] MEDS: DONEPEZIL 5 MG TABLET PO SCH (22:17)
[2017-03-16] VITALS (8 sets, daily range): BP systolic 118–162; BP diastolic 60–91
--- NOTE | 2017-03-16 08:00 | NUR ---
RN INITIAL NOTES RN RECEIVED PT RESTING IN BED, ASLEEP AT THIS TIME. PT IS SR ON TELE MONITOR. HOB ELEVATED. CLEAR LIQUID DIET AT THIS TIME . PT HAS A RFA 20G. NO SOB. BED IN LOW LOCKED POSITION. CALL LIGHT IN REACH. WILL CONT TO MONITOR CLOSELY.
[2017-03-16] MEDS: ASPIRIN EC 81 MG TABLET.DR PO SCH (10:25)
[2017-03-16] MEDS: FAMOTIDINE/PF INJ 20 MG/2 ML VIAL IV SCH ×2 (10:25→21:52)
[2017-03-16] MEDS: DULOXETINE HCL 30 MG CAPSULE.DR PO SCH (10:25)
[2017-03-16] MEDS: ONDANSETRON HCL/PF 4 MG/2 ML VIAL IVP PRN ×2 (10:25→16:59)
[2017-03-16] MEDS: AMLODIPINE BESYLATE 10 MG TABLET PO SCH (10:26)
[2017-03-16] MEDS: DIVALPROEX SODIUM 500 MG TABLET.DR PO SCH ×2 (10:26→16:59)
[2017-03-16] MEDS: MORPHINE SULFATE INJ 2 MG/ML DISP.SYRIN IV PRN ×2 (17:41→21:53)
--- NOTE | 2017-03-16 18:33 | NUR ---
RN NOTE PATIENT STABLE NO SOB NOTED PATIENT HAS HAD MULTIPLE EPISODES OF NAUSEA AND VOMITING THROUGHOUT THE DAY. PATIENT WITH COMPLAINED OF PAIN X1 AND MEDICATION WAS GIVEN TO HELP WITH PAIN, PATIENT HAS ALSO THROWN MEDICATION UP , THROUGH OUT THE DAY.
--- NOTE | 2017-03-16 20:05 | NUR ---
RN INITIAL NOTE; PT ON THE BED RESTING WITHOUT ANY DISTRESS . A/O X 3 WITH PERIODS OF CONFUSION. BREATHING EVEN AND UNLABORED ON 2 LPM VIA NC . RFA 20 G IV INTACT AND PATENT WITH CONTINUE LR @ 75 ML/HR . DENIED ANY PAIN AT THIS TIME . PT IS INCONTINENT TO BOWEL/BLADDER . SAFETY MEASURES APPLIED. CALL LIGHT WITHIN REACH . WILL CONTINUE TO MONITOR .
[2017-03-16] MEDS: DONEPEZIL 5 MG TABLET PO SCH (21:52)
--- NOTE | 2017-03-16 21:55 | NUR ---
RN NOTE; PRN MORPHINE 2 MG IV GIVEN FOR LEFT ELBOW PAIN , TOLERATED WELL AT THIS TIME . WILL REASSESS.
[2017-03-16] MEDS: IV LR 1000 ML 1,000 ML IV PRN (21:56)
[2017-03-17] VITALS (7 sets, daily range): BP systolic 105–172; BP diastolic 71–85
[2017-03-17] MEDS: ONDANSETRON HCL/PF 4 MG/2 ML VIAL IVP PRN ×2 (02:52→20:19)
--- NOTE | 2017-03-17 02:55 | NUR ---
RN NOTE PRN ZOFRAN 4 MG IV GIVEN FOR C/O NAUSEA , TOLERATED WELL AT THIS TIME . WILL REASSESS.
--- NOTE | 2017-03-17 06:53 | NUR ---
RN EOS NOTE; PT REMAINED STABLE DURING THE SHIFT. NO ANY DISTRESS NOTED. ALL NEEDS ATTENDED PROMPTLY. WILL ENDORSE TO NEXT SHIFT RN FOR CONTINUITY OF CARE.
[2017-03-17 06:55] LABS: BASOPHILS % (AUTO) 0.2 % (0.0-2.0); EOSINOPHILS % (AUTO) 0.2 % (0.0-6.0); HEMATOCRIT 43 % (33-45); HEMOGLOBIN 14.6 g/dL (11.5-14.8); LYMPHOCYTES # (AUTO) 1.2 /CMM (0.8-4.8); MEAN CORPUSCULAR HEMOGLOBIN 32 PG (26.0-33.0); MEAN CORPUSCULAR HGB CONC 34 g/dl (31.0-36.0); MEAN CORPUSCULAR VOLUME 94 fL (82-100); MONOCYTES # (AUTO) 0.6 /CMM (0.1-1.30); MONOCYTES % (AUTO) 8.4 % (2.0-12.0); NEUTROPHILS # (AUTO) 5.7 /CMM (1.8-8.9); NEUTROPHILS % (AUTO) 75.2 % (43.0-81.0); PLATELET COUNT (AUTO) 144 /CMM (150-450); RDW COEFFICIENT OF VARIATION 13.7 (11.5-15.0); RED BLOOD CELL COUNT(AUTO) 4.54 MIL/uL (4.0-5.2); WHITE BLOOD COUNT (AUTO) 7.6 K/uL (4.3-11.0)
[2017-03-17 07:04] LABS: CALCIUM, SERUM 8.7 mg/dL (8.5-10.1); CARBON DIOXIDE 34 mmol/L (21-32); CHLORIDE 96 mmol/L (98-107); CREATININE 0.5 mg/dL (0.6-1.3); GLUCOSE 107 mg/dL (74-106); MAGNESIUM 1.8 mg/dL (1.8-2.4); SODIUM SERUM 135 mmol/L (136-145); UREA NITROGEN, BLOOD 17 mg/dL (7-18)
[2017-03-17 07:48] LABS: POTASSIUM 2.4 mmol/L (3.5-5.1)
--- NOTE | 2017-03-17 08:00 | NUR ---
ICU/RN INITIAL NOTES,AM RECEIVED REPORT FROM NIGHT NURSE. PT ALERT, AWAKE, ORIENTED TO PERSON, PLACE AND TIME. ON 2LITERS NASAL CANULA, NO DISTRESS NOTED. PT ON DIAPER. PT CONTINUES TO FEEL NAUSEATED AND WEAK. UNABLE TO KEEP ANYTHING DOWN. IV FLUIDS INFUSING ORDERED, PIV PATENT AND INTACT, NO S/S OF INFECTION OR INFILTRATION NOTED. POTASSIUM LOW, WILL REPLACE. ALL NEEDS WILL BE MET, SAFETY MEASURES TAKEN, BED IN LOW POSITION, SIDE RAILS UP, CALL LIGHT WITHIN REACH.
[2017-03-17] MEDS ORDERED: POTASSIUM CHLORIDE 20 MEQ TAB.PRT.SR PO ONE (08:30)
[2017-03-17] MEDS: DIVALPROEX SODIUM 500 MG TABLET.DR PO SCH ×2 (08:44→16:06)
[2017-03-17] MEDS: FAMOTIDINE/PF INJ 20 MG/2 ML VIAL IV SCH ×2 (08:44→21:03)
[2017-03-17] MEDS: DULOXETINE HCL 30 MG CAPSULE.DR PO SCH (08:44)
[2017-03-17] MEDS: ASPIRIN EC 81 MG TABLET.DR PO SCH (08:44)
[2017-03-17] MEDS: AMLODIPINE BESYLATE 10 MG TABLET PO SCH (08:49)
[2017-03-17] MEDS: POTASSIUM CL. PREMIX PERIPHER. 50 ML IV SCH ×8 (08:51→23:25)
--- NOTE | 2017-03-17 09:30 | NUR ---
MS/RN: PT VOMITED, MD AWARE. VSS, WILL CONTINUE TO MONITOR
[2017-03-17] MEDS: Magnesium 1GM/D5W 100ML PREMIX 100 ML IV SCH ×2 (13:45→16:06)
--- NOTE | 2017-03-17 19:15 | NUR ---
MS/RN ENDING NOTES,AM REPORT WILL BE ENDORSED TO NIGHT NURSE. PT ON NASAL CANULA, NO DISTRESS. VSS. ALL NEEDS ATTENDED TO, BATHE, ABLE TO SELF TURN. SAFETY MEASURES TAKEN, BED IN LOW POSITION, SIDE RAILS UP, CALL LIGHT WITHIN REACH. WILL CONTINUE CARE
--- NOTE | 2017-03-17 19:30 | NUR ---
RN OPENING NOTES: RECEIVED PT ON BED ASLEEP BUT EASILY AROUSABLE, ALOX3 ABLE TO VERBALIZE NEEDS. ON O2 THERAPY AT 2LPM NC, NOT IN APPARENT DISTRESS. IV ACCESS INTACT ON RFA G20. SAFETY MEASURES ENSURED; BED ALARM SET. WITH COMPLAINTS OF NAUSEA; MONITORED FOR NAUSEA TRIGGERS. TO REPLACE 4 MORE KCL BAGS IV ORDERED. CONTINUOUSLY MONITORED.
[2017-03-17] MEDS: IV LR 1000 ML 1,000 ML IV PRN (20:00)
[2017-03-17] MEDS: hydrALAZINE HCL IV 20 MG VIAL IV PRN (20:20)
[2017-03-17] MEDS: MORPHINE SULFATE INJ 2 MG/ML DISP.SYRIN IV PRN (20:21)
--- NOTE | 2017-03-17 20:21 | NUR ---
RN NOTES: WITH COMPLAINTS OF PAIN, OVER HEAD NECK AND BACK. REPOSITIONED BUT REQUESTED FOR PAIN MEDS. NOTED BLOOD PRESSURE TO BE 172/92. HYDRALAZINE PRN GIVEN, ALSO GIVEN PAIN MEDICATION PRN AND NAUSEA MEDICATION. SAFETY MEASURES ENSURED. CONTINUOUSLY MONITORED FOR RESPONSE TO MEDS. 0 BP RECHECKED AT 146/85. PATIENT INTERMITTENTLY SLEEPING.
[2017-03-17] MEDS: DONEPEZIL 5 MG TABLET PO SCH (21:04)
[2017-03-18 04:00] VITALS: BP 151/76
--- NOTE | 2017-03-18 06:43 | NUR ---
RN CLOSING NOTES: PATIENT REMAINED IN BED NOT IN DISTRESS, KEPT ON O2 THERAPY. AM LABS DRAWN; RESULTS PENDING. SAFETY MEASURES ENSURED. CALL LIGHT IN REACH. SKIN CARE RENDERED. CONTINUOUSLY MONITORED. TO ENDORSE TO AM SHIFT RN.
[2017-03-18 07:04] LABS: BASOPHILS % (AUTO) 0.1 % (0.0-2.0); EOSINOPHILS % (AUTO) 0.1 % (0.0-6.0); HEMATOCRIT 40 % (33-45); HEMOGLOBIN 13.6 g/dL (11.5-14.8); LYMPHOCYTES % (AUTO) 35.5 % (20.0-44.0); MEAN CORPUSCULAR HEMOGLOBIN 32 PG (26.0-33.0); MEAN CORPUSCULAR HGB CONC 34 g/dl (31.0-36.0); MEAN CORPUSCULAR VOLUME 95 fL (82-100); MONOCYTES # (AUTO) 0.6 /CMM (0.1-1.30); MONOCYTES % (AUTO) 11.4 % (2.0-12.0); NEUTROPHILS % (AUTO) 52.9 % (43.0-81.0); PLATELET COUNT (AUTO) 172 /CMM (150-450); RDW COEFFICIENT OF VARIATION 13.5 (11.5-15.0); RED BLOOD CELL COUNT(AUTO) 4.23 MIL/uL (4.0-5.2); WHITE BLOOD COUNT (AUTO) 5.7 K/uL (4.3-11.0)
[2017-03-18 07:14] LABS: CALCIUM, SERUM 8.2 mg/dL (8.5-10.1); CARBON DIOXIDE 33 mmol/L (21-32); CHLORIDE 97 mmol/L (98-107); CREATININE 0.5 mg/dL (0.6-1.3); GLUCOSE 101 mg/dL (74-106); MAGNESIUM 2.1 mg/dL (1.8-2.4); POTASSIUM 3.2 mmol/L (3.5-5.1); SODIUM SERUM 132 mmol/L (136-145); UREA NITROGEN, BLOOD 16 mg/dL (7-18)
--- NOTE | 2017-03-18 07:30 | NUR ---
RN AMINA RECEIVED PATIENT ASLEEP ON BED WITH ON GOING IVF, INFUSING WELL EASILY AROUSAL NOTED, NO COMPLAINTS AT THE MOMENT, ALERT ORIENTED X 3 BLOOD PRESSURE IS ELEVATED, PATIENT HAS BLOOD PRESSURE MEDICATION PATIENT HAS DIAPER SHE WILL BE GIVEN BREAKFAST AND WILL BE EVALUATED FOR NAUSEA OR VOMITING
[2017-03-18 08:00] VITALS: BP 159/89
--- NOTE | 2017-03-18 08:30 | NUR ---
RN AMINA ABLE TO CONSUME HER MEAL WITH [employer] APPETITE SHE SAID SHE FEELS NAUSEATED AND ASKED FOR A COLA, GREEN BAG OFFERED IN CASE SHE VOMITS SHE SAID COLA WILL HELP HER WITH HER NAUSEA OFFERED HER ICE CHIPS
[2017-03-18] MEDS: FAMOTIDINE/PF INJ 20 MG/2 ML VIAL IV SCH (08:32)
[2017-03-18] MEDS: AMLODIPINE BESYLATE 10 MG TABLET PO SCH (08:36)
[2017-03-18] MEDS: ASPIRIN EC 81 MG TABLET.DR PO SCH (08:36)
[2017-03-18] MEDS: DULOXETINE HCL 30 MG CAPSULE.DR PO SCH (08:36)
[2017-03-18] MEDS: DIVALPROEX SODIUM 500 MG TABLET.DR PO SCH ×2 (08:36→17:17)
[2017-03-18] MEDS: POTASSIUM CL. PREMIX PERIPHER. 50 ML IV SCH ×4 (10:15→13:05)
[2017-03-18] MEDS: IV LR 1000 ML 1,000 ML IV PRN (10:21)
--- NOTE | 2017-03-18 12:24 | NUR ---
RN AMINA SEEN AND EXAMINED BY DR. ECHEVARRIA WITH RACHEL ORDERS MADE AND CARRIED OUT ONCE PATIENT TOLERATED ADVANCED FEEDING OCTOBER D/C
[2017-03-18] MEDS: ONDANSETRON HCL/PF 4 MG/2 ML VIAL IVP PRN (13:04)
[2017-03-18 16:00] VITALS: BP 114/60
--- NOTE | 2017-03-18 18:00 | NUR ---
BEAMING INSPECTOR PATIENT ENDORSED TO EMT PLACED ON A GURNEY IV REMOVED NO OTHER UNTOWAR SYMPTOM SEEN ENDORSED
== END 2017-03-18 17:59 | DRG 392 ==
LOC: ER 11:08 → MEDSG1 14:43 → TELE1 15:29 → MEDSG1 03-16 08:47
PROVIDERS: ATTEND Legal Medicine
PROC: 0DB68ZX Excision of Stomach, Via Natural or Artificial Opening Endoscopic, Diagnostic (ICD-10-PCS; principal; 2017-03-15 15:21)
DX: K29.70 Gastritis, unspecified, without bleeding (principal); R56.9 Unspecified convulsions; J44.9 Chronic obstructive pulmonary disease, unspecified; E83.42 Hypomagnesemia; K44.9 Diaphragmatic hernia without obstruction or gangrene; E78.5 Hyperlipidemia, unspecified; E87.6 Hypokalemia; Z86.73 Personal history of transient ischemic attack (TIA), and cerebral infarction without residual deficits; F17.210 Nicotine dependence, cigarettes, uncomplicated; F31.9 Bipolar disorder, unspecified; I10 Essential (primary) hypertension; I49.9 Cardiac arrhythmia, unspecified; F45.41 Pain disorder exclusively related to psychological factors
CPT/HCPCS: 36415; 76705-TC; 80048-TC; 80061-TC; 80076-TC; 83690-TC; 83735-TC; 84100-TC; 84132-TC; 84443-TC; 84484-TC; 85025-TC; 87081-TC; 88305-TC; 88313-TC; 88342; 93307-TC; A4606; J0360; J2270; J2405; J2704; J3475; J3480; J3490; J7030; J7050; J7120; Q9967; Z7610

== ENCOUNTER 2017-12-28 07:16 | Emergency (ER) | payer MEDICARE, OTHER ==
[~2017-12-28] VITALS: Ht 160 cm; Wt 73.5 kg
[~2017-12-28 07:16] MED LIST changes: +ACID1TAB12 PO; -ALBU18HF2 INH; -CEPH500C2 PO; -DOXE25CA3 PO; +DULO30CA2 PO; -HYDR-3652 PO; +HYDR-4209 PO; -IBUP-1481 PO; +IBUP-1953 PO; -LISI-603 PO; +MUPI22OI7 MC; +SULF1TAB48 PO
--- NOTE | 2017-12-28 07:21 | NUR ---
PT WAS BB RA FROM [facility] FOR LOW BACK PAIN, LEFT ELBOW PAIN S/P TRIPPED AND FALL THIS AM, NO KO REPORTED. NAD VSS RR EVEN AND UNLABORED. KEPT WARM AND COMFORTABLE.
[2017-12-28] MEDS ORDERED: IPRATROPIUM NEB FS 0.5 MG/2.5 ML AMPUL.NEB NEB ONE (07:30)
[2017-12-28] MEDS ORDERED: ALBUTEROL FS 2.5 MG/3 ML VIAL.NEB NEB ONE (07:30)
--- NOTE | 2017-12-28 07:35 | NUR ---
PATIENT AMBULATES TO THE RESTROOM WITH ASSISTANCE.
--- NOTE | 2017-12-28 07:40 | NUR ---
DR WAHL MADE AWARE OF THE LEFT ELBOW, HE STATES "I'M NOT WORRIED ABOUT THAT, ITS AN OLD INJURY".
[2017-12-28] MEDS ORDERED: ALBUTEROL FS 2.5 MG/3 ML VIAL.NEB ONE (07:44)
[2017-12-28] MEDS ORDERED: IPRATROPIUM NEB FS 0.5 MG/2.5 ML AMPUL.NEB ONE (07:44)
--- NOTE | 2017-12-28 09:05 | NUR ---
Patient discharged to home VIA AMBULANZ in stable condition. Written and verbal after care instructions given. Patient verbalizes understanding of instruction.
[2017-12-28 09:07] VITALS: BP 129/63
== END 2017-12-28 09:08 | disposition home or self-care (01) ==
LOC: ER 07:19
DX: G89.29 Other chronic pain (principal); M54.5 Low back pain; J44.9 Chronic obstructive pulmonary disease, unspecified; R56.9 Unspecified convulsions; I10 Essential (primary) hypertension; F17.200 Nicotine dependence, unspecified, uncomplicated; Z88.0 Allergy status to penicillin; Z86.73 Personal history of transient ischemic attack (TIA), and cerebral infarction without residual deficits
CPT/HCPCS: 94640; 99283; A4606; Z7610

== ENCOUNTER 2018-08-21 20:49 | Emergency (ER) | payer MEDICARE, OTHER ==
[~2018-08-21] VITALS: Ht 167.6 cm; Wt 81.6 kg
[~2018-08-21 20:49] MED LIST changes: +DIVA-78 PO; -DIVA500T7 PO
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
[2018-08-21] MEDS ORDERED: ACETAMINOPHEN 325 MG TABLET ONE (21:17)
[2018-08-21] MEDS ORDERED: ACETAMINOPHEN 325 MG TABLET PO ONE (21:30)
[2018-08-21] MEDS ORDERED: TDAP [DIPH/PERTUSSIS/TET] 0.5 ML VIAL IM ONE ×2 (22:06→22:30)
--- NOTE | 2018-08-21 22:29 | NUR ---
[facility] CALLED FOR TRANSPORT. ETA [id number] TRIP#[id number]
[2018-08-22 00:50] VITALS: BP 140/72
== END 2018-08-22 01:10 | disposition home or self-care (01) ==
LOC: ER 20:52
DX: S01.01XA Laceration without foreign body of scalp, initial encounter (principal); S09.8XXA Other specified injuries of head, initial encounter; F12.10 Cannabis abuse, uncomplicated; R56.9 Unspecified convulsions; I10 Essential (primary) hypertension; F32.9 Major depressive disorder, single episode, unspecified; F17.210 Nicotine dependence, cigarettes, uncomplicated; Z88.0 Allergy status to penicillin; Z86.73 Personal history of transient ischemic attack (TIA), and cerebral infarction without residual deficits; W01.0XXA Fall on same level from slipping, tripping and stumbling without subsequent striking against object, initial encounter; Y93.89 Activity, other specified; Y92.89 Other specified places as the place of occurrence of the external cause; Y99.8 Other external cause status
CPT/HCPCS: 12001; 70450; 71045; 72125; 72170; 82962; 90471; 90715; 93005; 99284; A4606; A6402